=== PATIENT | male | born 1990 | race Caucasian/White ===

== ENCOUNTER 2017-02-21 17:10 | Emergency (ER) | payer OTHER ==
[~2017-02-21] VITALS: Ht 190.5 cm; Wt 99.8 kg
[2017-02-21 18:52] VITALS: BP 120/64
== END 2017-02-21 18:55 | disposition home or self-care (01) ==
LOC: ED 17:10
DX: S91.332A Puncture wound without foreign body, left foot, initial encounter (principal); H40.9 Unspecified glaucoma; Z79.899 Other long term (current) drug therapy; Z98.890 Other specified postprocedural states; W26.8XXA Contact with other sharp object(s), not elsewhere classified, initial encounter; Y93.89 Activity, other specified; Y92.89 Other specified places as the place of occurrence of the external cause; Y99.8 Other external cause status
CPT/HCPCS: 90715; J1885